=== PATIENT | female | born 1985 | race Caucasian/White ===

== ENCOUNTER 2016-09-27 12:54 | Emergency (ER) | payer SELFPAY ==
[2016-09-27 14:52] LABS: Urine Bilirubin Negative (Negative); Urine Glucose Negative (Negative); Urine Nitrite Negative (Negative)
[2016-09-27] MEDS ORDERED: NS 0.9% 1000 ML* 1,000 ML IV ONE (15:01)
[2016-09-27 15:02] LABS: UR Preg Internal Control QC Line Present
[2016-09-27 15:19] LABS: Hematocrit 41 % (35-47); Hemoglobin 13.8 g/dl (12.0-16.0); Mean Corpuscular HGB Conc 34 g/dl (31-36); Mean Corpuscular Hemoglobin 29 pg (27-31); Mean Corpuscular Volume 85 fL (80-97); Mean Platelet Volume 7 um3 (7.4-10.4); Red Blood Count 4.83 10^6/ul (4.0-5.4); Red Cell Distribution Width 14 % (10.5-15); White Blood Count 7.4 10^3/ul (3.5-10.8)
[2016-09-27 15:33] LABS: Albumin 4.5 g/dL (3.2-5.2); BUN/Creatinine Ratio 10.4 (8-20); C Reactive Protein 6.7 mg/L (< 5.00); Calcium 9.9 mg/dL (8.6-10.3); EGFR Non-African American 88.6 (>60); Globulin 2.9 g/dL (2-4); Potassium 3.8 mmol/L (3.5-5.0); Total Bilirubin 0.5 mg/dL (0.2-1.0); Total Protein 7.4 g/dL (6.4-8.9)
[2016-09-27] MEDS ORDERED: Iohexol 300* (CONTRAST) 10 ML SDV IV ONE (17:23)
--- NOTE | 2016-09-27 18:07 | RAD ---
INDICATION: Left lower quadrant abdominal pain. COMPARISON: There are no prior studies available for comparison. TECHNIQUE: A CT scan of the abdomen and pelvis was performed with intravenous and oral contrast following intravenous injection of 107 ml of Omnipaque 300 nonionic contrast. Contiguous axial sections were obtained from the lung bases through the symphysis pubis. Images were reconstructed in the coronal and sagittal planes. FINDINGS: The lung bases are clear. No pleural effusion is present. The liver and spleen are within normal limits in size without significant focal abnormality. The liver is decreased in attenuation consistent with fatty infiltration. No calcified gallstones are seen. The pancreas appears to be within normal limits in size. The kidneys and adrenal glands are normal in size. No hydronephrosis is seen. No significant focal renal abnormality is seen. The aorta is normal in caliber and demonstrates homogeneous contrast opacification. No significant enlarged retroperitoneal lymph nodes are seen. The stomach, small and large bowel appear nondistended. The appendix is within normal limits. There is mild sigmoid diverticulosis. There is no evidence for diverticulitis or colitis. The patient is status post hysterectomy. No free intraperitoneal air or fluid is seen. No significant focal osseous abnormality is seen. IMPRESSION: NO EVIDENCE FOR ACUTE FINDING OR CAUSE FOR THE PATIENT'S ABDOMINAL PAIN IS SEEN.
[2016-09-27 18:41] VITALS: BP 127/69
--- NOTE | 2016-09-29 23:20 | ED ---
Carmen Washington Rebecca, scribed for Steven Caro MD on 09/27/16 at 1403 . Abdominal Pain/Female - HPI Summary HPI Summary: Pt is a 31 y/o F who presents to ED c/o LLQ pain. Sx began suddenly at 1600 last night and have been constant since onset. Pain is discrete to the LLQ without radiation, characterized as sharp and ranked severe, 7/10. Sx aggravated by laying down and driving over bumps, alleviated by sitting with her knees up. Additionally c/o fever, chills, dipahoresis, blood in stool. Denies hematuria, dysuria. FHx Crohn's Disease. Reports "digestion and bowel issues" for the last few months for which she has been working with her PCP and has a GI visit on the of this month with [facility] in [place], [place]. - History of Current Complaint Chief Complaint: EDAbdPain Stated Complaint: LOWER LEFT ABD PAIN Hx Obtained From: Patient Onset/Duration: Sudden Onset, Lasting Days - 1 day, Still Present Timing: Constant Severity Initially: Moderate Severity Currently: Severe Pain Intensity: 7 Pain Scale Used: 0-10 Numeric Location: Discrete At: LLQ Radiates: No Character: Sharp Aggravating Factor(s): Other: - Laying flat, driving over bumps Alleviating Factor(s): Position - Sitting with her knees up Associated Signs and Symptoms: Positive: Diaphoresis, Fever, Blood in Stool, Other: - Chills. Negative: Urinary Symptoms Allergies/Adverse Reactions: Allergies Allergy/AdvReac Type Severity Reaction Status Date / Time Amoxicillin Allergy Anaphylatic Verified 09/27/16 13:08 Shock Morphine and Related Allergy Hives Verified 09/27/16 13:08 Penicillins Allergy Anaphylatic Verified 09/27/16 13:08 Shock PMH/Surg Hx/FS Hx/Imm Hx History: Reports: Other Problems/Disorders - Hx Nonalcoholic Fatty Liver Disease Denies: Hx Kidney Stones - Surgical History Surgery Procedure, Year, and Place: C-SECTOIN (2011). FULL HYSTERECTOMY (2012) Infectious Disease History: No Infectious Disease History: Denies: Traveled Outside the US in Last 30 Days - Family History Known Family History: Positive: Other - FHx Crohn's (grandmother and 2 aunts) - Social History Occupation: Employed Full-time Alcohol Use: None Smoking Status (MU): Former Smoker - Quit 2 days ago Review of Systems Positive: Fever, Chills, Skin Diaphoresis Negative: Erythema Negative: Sore Throat Negative: Chest Pain Negative: Shortness Of Breath, Cough Positive: Abdominal Pain - LLQ pain. Negative: Vomiting, Nausea Positive: other - blood in stool. Negative: dysuria, hematuria Negative: Myalgia, Edema Negative: Rash Neurological: Other - Negative dizziness All Other Systems Reviewed And Are Negative: Yes Physical Exam - Summary Physical Exam Summary: Constitutional: Well-developed, Well-nourished, Alert. (-) Distressed Skin: Warm, Dry HENT: Normocephalic; Atraumatic Eyes: Conjunctiva normal Neck: Musculoskeletal ROM normal neck. (-) JVD, (-) Stridor, (-) Tracheal deviation Cardio: Rhythm regular, rate normal, Heart sounds normal; Intact distal pulses; The pedal pulses are 2+ and symmetric. Radial pulses are 2+ and symmetric. (-) Murmur Pulmonary/Chest wall: Effort normal. (-) Respiratory distress, (-) Wheezes, (-) Rales Abd: Soft,(-) Distension, (-) Rebound, Guarding, LLQ tenderness Musculoskeletal: (-) Edema Lymph: (-) Cervical adenopathy Neuro: Alert, Oriented x3 Psych: Mood and affect Normal Triage Information Reviewed: Yes Vital Signs On Initial Exam: Initial Vitals Temp Pulse Resp BP Pulse Ox 97.4 F 75 17 119/75 100 09/27/16 13:06 09/27/16 13:06 09/27/16 13:06 09/27/16 13:06 09/27/16 13:06 Vital Signs Reviewed: Yes Diagnostics - Vital Signs Vital Signs Temp Pulse Resp BP Pulse Ox 09/27/16 13:11 97.4 F 75 17 119/75 100 09/27/16 13:06 97.4 F 75 17 119/75 100 - Laboratory Result Diagrams: 09/27/16 15:10 09/27/16 15:10 Lab Statement: Any lab studies that have been ordered have been reviewed, and results considered in the medical decision making process. - CT CT Abd/Pel CT Interpretation: No Acute Changes - NO EVIDENCE FOR ACUTE FINDING OR CAUSE FOR THE PATIENT'S ABDOMINAL PAIN IS SEEN. CT Interpretation Completed By: Radiologist Re-Evaluation - Re-Evaluation First Eval Re-Evaluation Time: 18:28 Change: Improved Comment: Reexamined her abdomen and she is mildly tender in the LLQ. She reported that she has had similar pain before. Was advised to move her appointment with [facility] up and to make an appointment with her PCP for this week. Abdominal Pain Fem Course/Dx - Course Course Of Treatment: Pt is a 31 y/o F with a CC of sharp, severe LLQ pain since 1600 last night. Additoinally c/o fever, chills, diaphoresis and blood in stool. Denies hematuria, dysuria. CT Abd/Pel reveals no acute findings. She has had a hysterectomy including ovaries, so no concern for ovarian torsion. She will be D/C to home with a Dx of LLQ abdominal pain and a follow up with her PCP , as well as moving up her GI appointment. - Diagnoses Differential Diagnosis: Positive: Diverticulitis, Irritable Bowel Syndrome, Other - Ulcerative colitis, Crohn's Disease, Microperforation, Colitis Provider Diagnoses: LLQ abdominal pain Discharge - Discharge Plan Condition: Stable Disposition: HOME Patient Education Materials: Abdominal Pain (ED) Referrals: [facility] [place] [place] [facility] [Outside] - 3 Days (Schedule an appointment for this week. ) Additional Instructions: Contact [facility] to move up your appointment. RETURN TO THE EMERGENCY DEPARTMENT FOR CHANGING OR WORSENING SYMPTOMS The documentation as recorded by the Carmen cade Rebecca accurately reflects the service I personally performed and the decisions made by me, Steven Caro MD.
== END 2016-09-27 18:49 | disposition home or self-care (01) ==
LOC: ED 12:54
DX: R10.32 Left lower quadrant pain (principal); R50.9 Fever, unspecified; K92.1 Melena
CPT/HCPCS: 36415; 74177; 80053; 81003; 81025; 83605; 83690; 85025; 86140; 99283; Q9967

== ENCOUNTER 2018-02-18 18:01 | Emergency (ER) | payer BC ==
[2018-02-18] MEDS ORDERED: LORazepam INJ* 2 MG/ML 1 ML VIAL IV PUSH ONE (19:24)
[2018-02-18] MEDS ORDERED: NS 0.9% 1000 ML* 1,000 ML IV ONE (19:24)
[2018-02-18] MEDS ORDERED: Ketorolac INJ* 30 MG/ML 1 ML VIAL IV PUSH ONE (19:24)
[2018-02-18 19:30] LABS: ABS Basophils 0.1 10^3/ul (0-0.2); ABS Eosinophils 0.3 10^3/ul (0-0.6); ABS Lymphocytes 3.9 10^3/ul (1.0-4.8); ABS Neutrophils 5.6 10^3/ul (1.5-7.7); ABS Nucleated RBC 0 10^3/ul; Eosinophil % 2.8 % (0-6); Hematocrit 42 % (35-47); Hemoglobin 14.1 g/dl (12.0-16.0); Lymphocyte % 35.8 % (25-47); Mean Corpuscular HGB Conc 34 g/dl (31-36); Mean Corpuscular Hemoglobin 29 pg (27-31); Mean Corpuscular Volume 86 fL (80-97); Mean Platelet Volume 6.7 um3 (7.4-10.4); Nucleated Red Blood Cells % 0; Platelet Count 325 10^3/ul (150-450); Red Blood Count 4.89 10^6/ul (4.00-5.40); Red Cell Distribution Width 14 % (10.5-15); White Blood Count 10.8 10^3/ul (3.5-10.8)
[2018-02-18 19:35] LABS: INR 0.96 (0.77-1.02)
[2018-02-18 19:40] LABS: EGFR Non-African American 86.7 (>60)
--- NOTE | 2018-02-18 19:42 | ED ---
Back Pain - HPI Summary HPI Summary: A 32 year old F presents to ED with severe R lower back onset 1100 today and worsening. At onset of back sergo, she heard a "pop." The pain is radiating to her hip. Associated sx: RLQ pain, dyspnea secondary to back pain, severe nausea. Denies urinary sx, LE pain/numbness/weakness. Aggravating factors: all movement. Complete hysterectomy in 2014. - History of Current Complaint Chief Complaint: EDAbdPain Stated Complaint: PAIN RT LOWER BACK AND HIP Time Seen by Provider: 02/18/18 19:18 Hx Obtained From: Patient Onset/Duration: Lasting Hours, Still Present Onset/Duration: Started Hours Ago, Still Present Timing: Constant Severity Currently: Severe Pain Intensity: 9 Pain Scale Used: 0-10 Numeric Aggravating Symptom(s): Movement Associated Signs And Symptoms: Positive: Abdominal Pain - RLQ, Other - pos: hip pain, dyspnea, nausea. neg: LE pain/numbness/weakness.. Negative: Bladder Incontinence, Bowel Incontinence - Allergies/Home Medications Allergies/Adverse Reactions: Allergies Allergy/AdvReac Type Severity Reaction Status Date / Time MS Amoxicillin [Amoxicillin] Allergy Anaphylatic Verified 09/27/16 13:08 Shock MS Morphine and Related Allergy Hives Verified 09/27/16 13:08 [Morphine and Related] MS Penicillins [Penicillins] Allergy Anaphylatic Verified 09/27/16 13:08 Shock PMH/Surg Hx/FS Hx/Imm Hx Previously Healthy: No Endocrine/Hematology History: Denies: Hx Diabetes Cardiovascular History: Denies: Hx Hypertension History: Reports: Other Problems/Disorders - Hx Nonalcoholic Fatty Liver Disease Denies: Hx Kidney Stones, Hx Renal Disease - Surgical History Surgery Procedure, Year, and Place: C-SECTOIN (2011). FULL HYSTERECTOMY (2012) Infectious Disease History: No Infectious Disease History: Denies: Traveled Outside the US in Last 30 Days - Family History Known Family History: Positive: Other - FHx Crohn's (grandmother and 2 aunts) - Social History Occupation: Employed Full-time Lives: With Family Alcohol Use: None Substance Use Type: Reports: None Smoking Status (MU): Former Smoker - Quit 2 days ago Review of Systems Negative: Fever Positive: Other - pos: dyspnea secondary to back pain Positive: Abdominal Pain - RLQ, Nausea Positive: Myalgia - R lower back pain, hip pain, Edema - neg: LE edema Neurological: Other - neg: LE weakness/numbness All Other Systems Reviewed And Are Negative: Yes Physical Exam - Summary Physical Exam Summary: Appearance: Well appearing. Skin: warm, dry, reflects adequate perfusion Head/face: normal Eyes: EOMI, LFORY ENT: mucous membranes moist Neck: supple, non-tender Respiratory: CTA, breath sounds present Cardiovascular: RRR, pulses symmetrical Abdomen: Pt jumps and cries with any pressure to R abd. Bowel Sounds: present Musculoskeletal: Pt jumps and cries to any light touch to R-lower back and sacroilliac. Neuro: normal, sensory motor intact, A&Ox3 Mood/affect: tearful, keeps eyes closed during entirety of exam. Triage Information Reviewed: Yes Vital Signs On Initial Exam: Initial Vitals Temp Pulse Resp BP Pulse Ox 98.0 F 88 16 107/72 96 02/18/18 18:24 02/18/18 18:24 02/18/18 18:24 02/18/18 18:24 02/18/18 18:24 Vital Signs Reviewed: Yes Diagnostics - Vital Signs Vital Signs Temp Pulse Resp BP Pulse Ox 02/18/18 18:24 98.0 F 88 16 107/72 96 - Laboratory Lab Results: Lab Results 02/18/18 Range/Units 19:13 WBC 10.8 (3.5-10.8) 10^3/ul RBC 4.89 (4.00-5.40) 10^6/ul Hgb 14.1 (12.0-16.0) g/dl Hct 42 (35-47) % MCV 86 (80-97) fL MCH 29 (27-31) pg MCHC 34 (31-36) g/dl RDW 14 (10.5-15) % Plt Count 325 (150-450) 10^3/ul MPV 6.7 L (7.4-10.4) um3 Neut % (Auto) 51.8 (38-83) % Lymph % (Auto) 35.8 (25-47) % Surry % (Auto) 8.8 H (0-7) % Eos % (Auto) 2.8 (0-6) % Baso % (Auto) 0.8 (0-2) % Absolute Neuts (auto) 5.6 (1.5-7.7) 10^3/ul Absolute Lymphs (auto) 3.9 (1.0-4.8) 10^3/ul Absolute Monos (auto) 1.0 H (0-0.8) 10^3/ul Absolute Eos (auto) 0.3 (0-0.6) 10^3/ul Absolute Basos (auto) 0.1 (0-0.2) 10^3/ul Absolute Nucleated RBC 0 10^3/ul Nucleated RBC % 0 Result Diagrams: 02/18/18 19:13 02/18/18 19:13 Lab Statement: Any lab studies that have been ordered have been reviewed, and results considered in the medical decision making process. - CT ABD/PEL CT CT Interpretation Completed By: Radiologist Summary of CT Findings: IMPRESSION: 1. No acute findings. No appendicitis. No radiopaque renal or ureteral calculi. 2. Hepatic steatosis. 3. Status post hysterectomy. ED provider has reviewed this report. Re-Evaluation - Re-Evaluation 1 Re-Evaluation Time: 21:16 Change: Improved Comment: Pt is feeling better. Discussing lab and UA results thus far. Still pending CT read. Back Pain Course/Dx - Course Course Of Treatment: Pt has been seen previously for abd pain and discharged with negative labs and work-up. Surgical hx: and complete hysterectomy in 2014. No previous hx kidney stones. Patient was crying in discomfort with pain throughout the right lower back and right lower abdomen. She had a complete hysterectomy in the past. Urine was negative as were laboratories. His noncontrasted CT scan is performed and found to be negative for acute inflammation. Patient was treated symptomatically and improved significantly. Her tenderness now is isolated just to the right low back. We' ll treat her symptomatically, refer to adult live in caregiver and have her follow up with primary care physician. No disc symptoms or radicular symptoms down either leg. - Diagnoses Differential Diagnosis/HQI/PQRI: Positive: Herniated Disc, Renal Colic, Strain, Sprain Provider Diagnoses: Lumbar strain Discharge - Sign-Out/Discharge Documenting (check all that apply): Patient Departure - DC - Discharge Plan Condition: Improved Disposition: HOME Prescriptions: Cyclobenzaprine TAB* [Flexeril 10 MG TAB*] 10 mg PO TID PRN #12 tab PRN Reason: muscle pain Naproxen [Naproxen 500 mg tab] 500 mg PO BID PRN #12 tablet.dr BAJWA Reason: Pain Patient Education Materials: Low Back Strain (ED) Referrals: Lopez Gaxiola PA [Primary Care Provider] - Additional Instructions: Stay well-hydrated. Call and make an appointment to follow up with your doctor in the morning. Also adult live in caregiver may help. Call to make an appointment. Range of motion exercises, stretching and massage may help. Return with difficulty with bowel or bladder, numbness/weakness, worse, new symptoms or other concerns. - Billing Disposition and Condition Condition: IMPROVED Disposition: Home - Attestation Statements Document Initiated by Diandra: Yes Documenting Scribe: Edmundo Mejia Provider For Whom Diandra is Documenting (Include Credential): Dr. Minor Weathers MD Scribe Attestation: Edmundo Washington, scribed for Dr. Minor Weathers MD on 02/18/18 at 2153. Scribe Documentation Reviewed: Yes Provider Attestation: The documentation as recorded by the Edmundo cade accurately reflects the service I personally performed and the decisions made by me, Dr. Minor Weathers MD
[2018-02-18 20:18] LABS: Urine Appearance Clear; Urine Blood Negative (Negative); Urine Color Straw; Urine Ketones Negative (Negative); Urine Protein Negative (Negative); Urine Urobilinogen Negative (Negative)
--- NOTE | 2018-02-18 21:24 | RAD ---
EXAM: CT Abdomen and Pelvis Without Intravenous Contrast EXAM DATE/TIME: 02/18/2018 8:20 PM CLINICAL HISTORY: 32 years old, female; Pain; Abdominal pain; Prior surgery; Surgery date: 6+ months; Surgery type: Hysterectomy, emergency csection; Additional info: R flank/rlq pain TECHNIQUE: Axial computed tomography images of the abdomen and pelvis without intravenous contrast. All CT scans at this facility use at least one of these dose optimization techniques: automated exposure control; mA and/or kV adjustment per patient size (includes targeted exams where dose is matched to clinical indication); or iterative reconstruction. Coronal and sagittal reformatted images were created and reviewed. COMPARISON: A/P W CT ABD/PEL W 09/27/2016 5:39 PM FINDINGS: Lower thorax: No acute findings. ABDOMEN: Liver: There is a diffuse decrease in hepatic parenchymal density, consistent with fatty infiltration. Gallbladder and bile ducts: Unremarkable. No calcified gallstones. No ductal dilation. Pancreas: Unremarkable. No ductal dilation. Spleen: Unremarkable. No splenomegaly. Adrenals: Unremarkable. No mass. Kidneys and ureters: Unremarkable. No hydronephrosis. No calcified stones. Stomach and bowel: No bowel obstruction. No mucosal thickening. Appendix: Normal. No evidence of appendicitis. PELVIS: Bladder: Unremarkable as visualized. Contains no calcified stones. Reproductive: The uterus has been resected. ABDOMEN and PELVIS: Intraperitoneal space: No free air or significant free fluid. Vertical midline scar in lower abdomen. Bones/joints: No acute fracture or aggressive osseous lesion. Soft tissues: There is a small fat-containing umbilical hernia. . Vasculature: No abdominal aortic aneurysm. Lymph nodes: No enlarged lymph nodes. IMPRESSION: 1. No acute findings. No appendicitis. No radiopaque renal or ureteral calculi. 2. Hepatic steatosis. 3. Status post hysterectomy. To contact [facility] with a general question: Operations Center - [phone] For direct physician to physician contact: Physician Hotline - [phone] [facility] ([facility] Facility ID #[id number])
[2018-02-18] MEDS ORDERED: Cyclobenzaprine TAB* 10 MG PO ONE (21:29)
[2018-02-18 21:43] VITALS: BP 114/75
== END 2018-02-18 21:44 | disposition home or self-care (01) ==
LOC: ED 18:01
DX: S39.012A Strain of muscle, fascia and tendon of lower back, initial encounter (principal); X58.XXXA Exposure to other specified factors, initial encounter; Y92.9 Unspecified place or not applicable; R10.31 Right lower quadrant pain; R06.00 Dyspnea, unspecified; R11.0 Nausea; Z90.710 Acquired absence of both cervix and uterus; Z88.5 Allergy status to narcotic agent; Z88.0 Allergy status to penicillin; Z87.891 Personal history of nicotine dependence
CPT/HCPCS: 36415; 74176; 80053; 81003; 83605; 83690; 85025; 85610; 86140; 96374; 96375; 99283; A9270-GY; J1885; J2060

== ENCOUNTER 2019-03-28 02:41 | Inpatient (IN) | payer BC ==
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
[2019-03-28 03:37] LABS: ABS Basophils 0.1 10^3/ul (0-0.2); ABS Eosinophils 0.2 10^3/ul (0-0.6); ABS Lymphocytes 4.9 10^3/ul (1.0-4.8); ABS Monocytes 0.8 10^3/ul (0-0.8); ABS Neutrophils 6.3 10^3/ul (1.5-7.7); Eosinophil % 1.8 %; Hematocrit 40 % (35-47); Hemoglobin 13.3 g/dL (12.0-16.0); Lymphocyte % 39.8 %; Mean Corpuscular HGB Conc 33 g/dL (31-36); Mean Corpuscular Hemoglobin 29 pg (27-31); Mean Corpuscular Volume 86 fL (80-97); Mean Platelet Volume 6.6 fL (7.4-10.4); Nucleated Red Blood Cells % 0.3; Platelet Count 323 10^3/uL (150-450); Red Blood Count 4.63 10^6 /uL (3.70-4.87); Red Cell Distribution Width 14 % (10-15); White Blood Count 12.3 10^3/uL (3.5-10.8)
[2019-03-28 03:38] LABS: Urine Appearance Clear; Urine Bilirubin Negative (Negative); Urine Blood Negative (Negative); Urine Color Straw; Urine Glucose Negative (Negative); Urine Ketones Negative (Negative); Urine Nitrite Negative (Negative); Urine Protein Negative (Negative); Urine Specific Gravity 1.004 (1.010-1.030); Urine Urobilinogen Negative (Negative)
[2019-03-28 03:51] LABS: ALT 22 U/L (7-52); AST 20 U/L (13-39); Albumin 4.3 g/dL (3.2-5.2); Albumin/Globulin Ratio 1.5 (1-3); Alkaline Phosphatase 103 U/L (34-104); Anion Gap 7 mmol/L (2-11); BUN/Creatinine Ratio 10.5 (8-20); Blood Urea Nitrogen 9 mg/dL (6-24); CO2 Carbon Dioxide 26 mmol/L (22-32); Calcium 9.6 mg/dL (8.6-10.3); Chloride 107 mmol/L (101-111); EGFR African American 93.1 (>60); Globulin 2.9 g/dL (2-4); Glucose 107 mg/dL (70-100); Potassium 3.4 mmol/L (3.5-5.0); Sodium 140 mmol/L (135-145); Total Protein 7.2 g/dL (6.4-8.9)
[2019-03-28 03:57] LABS: HCG Pregnancy 3.12 mIU/mL
[2019-03-28 04:05] LABS: Urine Benzodiazepine Screen None Detected (None Detect)
[2019-03-28 04:06] LABS: Urine Opiates Screen None Detected (None Detect)
[2019-03-28 04:13] LABS: Acetaminophen < 15 mcg/mL; Alcohol < 10 mg/dL (<10); Salicylate < 2.50 mg/dL (<30)
[2019-03-28 04:42] LABS: TSH (Thyroid Stimulating Horm) 1.54 mcIU/mL (0.34-5.60)
[2019-03-28] MEDS ORDERED: Al Hydrox/Mg Hydrox/Simet LIQ* 30 ML UDC PO PRN (07:58)
[2019-03-28] MEDS ORDERED: Acetaminophen TAB* 325 MG PO PRN (07:58)
[2019-03-28] MEDS ORDERED: Nicotine* 2MG (FRUIT FLAVOR) GUM PO PRN (07:58)
[2019-03-28] MEDS ORDERED: Sertraline* 100 MG TAB PO SCH ×2 (09:45→21:00)
[2019-03-28] MEDS: Vitamin THERAPEUTIC TAB PO SCH (09:50)
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
[2019-03-28] MEDS: hydrOXYzine HCL TAB* 25 MG PO PRN (20:47)
[2019-03-28] MEDS: Nicotine Patch Removal NOTE FOLLOW UP SCH (23:37)
[2019-03-29 07:57] LABS: HDL Cholesterol 38.5 mg/dL
[2019-03-29] MEDS: Nicotine PATCH 7 MG/24 HR* PATCH TRANSDERM SCH (08:27)
[2019-03-29] MEDS: Vitamin THERAPEUTIC TAB PO SCH (08:27)
[2019-03-29] MEDS ORDERED: Influenza VAC *QUAD* 2019-20* 0.5 ML SYRINGE IM ONE (09:00)
--- NOTE | 2019-03-29 15:30 | PN ---
Subjective - Subjective Date of Service: 03/29/19 Service Type: 77165 Hosp care 15 min low complexity Subjective: Patient reports much improved mood and sleep. She states that meeting with Dr Victor to discuss MMPI results was helpful and validating. She states this helped to be able to be honest about dissociating and refers to this as "slipping into Little." Patient reports anxiety in regards to continuing therapy but is motivated to do so. Objective - General Observations Appearance: Well Groomed Stature: WNL Posture: WNL Eye Contact: Average Behavior/Activity: WNL - Interaction Observations Attitude Towards Examiner: Cooperative Stated Mood: Dysphoric, Euthymic Affect: Full Speech Pattern/Tone: Clear, Appropriate, Normal Volume Thought Process: Coherent, Circumstantial Perception: WNL Thought Content: Depressive, Self-Deprecatory Thought Process: Lethality: Suicidal Planning - intrusive thoughts of suicide Hallucination Type: Denies Delusion Type: Denies - Cognitive Function Orientation: A&O x 4 Level of Consciousness: Alert Cognition: WNL Estimated Intelligence: Normal Insight: WNL Judgment Within Normal Limits: No Ability to Make Reasonable Decisions: Moderately Impaired - Medication Compliance Cooperative with Inpatient Medication Regimen: Yes - Group Participation Participates in Group Activities: Yes Assessment - Assessment Merits Inpatient Hospitalization: For Immediate Safety, For Stabilization Inpatient DSM-V Dx: F43.12 Clinical Impression: 33yo female by , identifies as nonbinary, prefers to be called Morigan and prefers they/them pronouns, who presented to the ED with intrusive thoughts of suicide as well as panic attacks and insomnia. Patient has a trauma history and is experiencing dissociative episodes. Patient merits hospitalization for immediate safety and stabilization. Plan - Plan Treatment Plan: Name: CEDRICK TOWNSEND Birthdate: 1985 [id number] Continue acute intensive psychiatric treatment. May decrease to q30min and allow staff pass and computer use per RN discretion. Patient's child may visit per RN discretion. Continue current medications. Discharge planning to include family and outpatient providers. Continued Medication Management: Start Medication Medications: Current Medications Acetaminophen (Tylenol Tab*) 650 mg PO Q4H PRN PRN Reason: PAIN or TEMP > 101 F Al Hydrox/Mg Hydrox/Simethicone (Maalox Plus*) 30 ml PO Q4H PRN PRN Reason: INDIGESTION Hydroxyzine HCl (Atarax Tab*) 25 mg PO Q6H PRN PRN Reason: ANXIETY Last Admin: 03/28/19 20:47 Dose: 25 mg Melatonin (Melatonin) 3 mg PO BEDTIME PRN PRN Reason: INSOMNIA Multivitamins (Theragran Tab*) 1 tab PO DAILY [facility] Last Admin: 03/29/19 08:27 Dose: 1 tab Nicotine (Nicotine Patch 7 Mg/24 Hr*) 1 patch TRANSDERM DAILY [facility] Last Admin: 03/29/19 08:27 Dose: 1 patch Nicotine Polacrilex (Nicotine Gum*) 2 mg PO Q2H PRN PRN Reason: CRAVINGS Pharmacy Profile Note (Nicotine Patch Removal Note*) 1 note FOLLOW UP 2100 [facility] Last Admin: 03/28/19 23:37 Dose: Not Given Sertraline HCl (Zoloft*) 200 mg PO BEDTIME [facility] - Discharge Plan Discharge Plan: Inpatient Hospitalization Outpatient Program: [facility]
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
[2019-03-29] MEDS: Melatonin 3 MG TAB PO PRN (20:45)
[2019-03-29] MEDS: hydrOXYzine HCL TAB* 25 MG PO PRN (20:45)
[2019-03-29] MEDS: Sertraline* 100 MG TAB PO SCH (20:46)
[2019-03-29] MEDS: Nicotine Patch Removal NOTE FOLLOW UP SCH (20:46)
[2019-03-30] MEDS: Nicotine PATCH 7 MG/24 HR* PATCH TRANSDERM SCH (09:00)
[2019-03-30] MEDS: Vitamin THERAPEUTIC TAB PO SCH (09:00)
[2019-03-30] MEDS: Sertraline* 100 MG TAB PO SCH (19:55)
[2019-03-30] MEDS: Nicotine Patch Removal NOTE FOLLOW UP SCH (19:56)
[2019-03-30] MEDS: hydrOXYzine HCL TAB* 25 MG PO PRN (19:57)
[2019-03-30] MEDS: Melatonin 3 MG TAB PO PRN (19:57)
[2019-03-31] MEDS: Vitamin THERAPEUTIC TAB PO SCH (08:42)
[2019-03-31] MEDS: Nicotine PATCH 7 MG/24 HR* PATCH TRANSDERM SCH (08:42)
--- NOTE | 2019-03-31 18:02 | PN ---
Subjective - Subjective Date of Service: 03/31/19 Objective - General Observations Appearance: Well Groomed Appears Stated Age: Yes Stature: Overweight Posture: WNL Eye Contact: Average Behavior/Activity: WNL - Interaction Observations Attitude Towards Examiner: Cooperative Stated Mood: Euthymic Affect: Full Speech Pattern/Tone: Clear, Normal Volume Thought Process: Coherent, Goal Directed Perception: WNL Hallucination Type: None Delusion Type: None - Cognitive Function Orientation: A&O x 4 Level of Consciousness: Alert Cognition: WNL Judgment Within Normal Limits: Yes - Medication Compliance Cooperative with Inpatient Medication Regimen: Yes - Group Participation Participates in Group Activities: Yes Assessment - Assessment Merits Inpatient Hospitalization: Consolidate Improvements, For Discharge Planning Inpatient DSM-V Dx: F43.12 Plan - Treatment Plan Level of Observation: 15 Minute Checks, Full Code Status Obtain Collateral Information: Yes Medications: Current Medications Acetaminophen (Tylenol Tab*) 650 mg PO Q4H PRN PRN Reason: PAIN or TEMP > 101 F Last Admin: 03/31/19 11:13 Dose: 650 mg Al Hydrox/Mg Hydrox/Simethicone (Maalox Plus*) 30 ml PO Q4H PRN PRN Reason: INDIGESTION Hydroxyzine HCl (Atarax Tab*) 25 mg PO Q6H PRN PRN Reason: ANXIETY Last Admin: 03/30/19 19:57 Dose: 25 mg Melatonin (Melatonin) 3 mg PO BEDTIME PRN PRN Reason: INSOMNIA Last Admin: 03/30/19 19:57 Dose: 3 mg Multivitamins (Theragran Tab*) 1 tab PO DAILY [facility] Last Admin: 03/31/19 08:42 Dose: 1 tab Nicotine (Nicotine Patch 7 Mg/24 Hr*) 1 patch TRANSDERM DAILY [facility] Last Admin: 03/31/19 08:42 Dose: 1 patch Nicotine Polacrilex (Nicotine Gum*) 2 mg PO Q2H PRN PRN Reason: CRAVINGS Pharmacy Profile Note (Nicotine Patch Removal Note*) 1 note FOLLOW UP 2100 [facility] Last Admin: 03/30/19 19:56 Dose: 1 note Sertraline HCl (Zoloft*) 200 mg PO BEDTIME [facility] Last Admin: 03/30/19 19:55 Dose: 200 mg
--- NOTE | 2019-03-31 18:09 | PN ---
Subjective - Subjective Date of Service: 03/31/19 Subjective: Patient introduces self as Saurabh (the protector) because "Phylicia," is afraid. Patient reports that Phylicia is responding well to the increase in Sertraline and sleep and mood have improved and Phylicia no longer has thoughts of suicide. Patient informs me about other personalities: Tempest and Margo, etc. Objective - General Observations Appearance: Neat Appears Stated Age: Yes Stature: Overweight Posture: WNL Eye Contact: Average Behavior/Activity: WNL - Interaction Observations Attitude Towards Examiner: Defensive Stated Mood: Euthymic Affect: Restricted Speech Pattern/Tone: Clear, Normal Volume Thought Process: Coherent, Goal Directed Perception: WNL Thought Content: WNL Hallucination Type: None Delusion Type: None - Cognitive Function Orientation: A&O x 4 Level of Consciousness: Awake Estimated Intelligence: Normal Judgment Within Normal Limits: Yes - Medication Compliance Cooperative with Inpatient Medication Regimen: Yes - Group Participation Participates in Group Activities: Yes Assessment - Assessment Merits Inpatient Hospitalization: Consolidate Improvements, For Discharge Planning Inpatient DSM-V Dx: F43.12 Clinical Impression: 33yo female by , identifies as nonbinary, prefers to be called Phylicia and prefers they/them pronouns, who presented to the ED with intrusive thoughts of suicide as well as panic attacks and insomnia. Patient has a trauma history and is experiencing dissociative episodes. Patient merits hospitalization for immediate safety and stabilization. Met with this patient in self-reported dissociated state. They report "Phylicia is stabilizing in this structured setting." Plan - Plan Treatment Plan: Name: CEDRICK TOWNSEND Birthdate: 1985 [id number] Continue acute intensive psychiatric treatment. May decrease to q30min and allow staff pass and computer use per RN discretion. Patient's child may visit per RN discretion. Continue current medications. Discharge planning to include family and outpatient providers. Medications: Current Medications Acetaminophen (Tylenol Tab*) 650 mg PO Q4H PRN PRN Reason: PAIN or TEMP > 101 F Last Admin: 03/31/19 11:13 Dose: 650 mg Al Hydrox/Mg Hydrox/Simethicone (Maalox Plus*) 30 ml PO Q4H PRN PRN Reason: INDIGESTION Hydroxyzine HCl (Atarax Tab*) 25 mg PO Q6H PRN PRN Reason: ANXIETY Last Admin: 12/07/19 19:57 Dose: 25 mg Melatonin (Melatonin) 3 mg PO BEDTIME PRN PRN Reason: INSOMNIA Last Admin: 03/30/19 19:57 Dose: 3 mg Multivitamins (Theragran Tab*) 1 tab PO DAILY [facility] Last Admin: 03/31/19 08:42 Dose: 1 tab Nicotine (Nicotine Patch 7 Mg/24 Hr*) 1 patch TRANSDERM DAILY [facility] Last Admin: 03/31/19 08:42 Dose: 1 patch Nicotine Polacrilex (Nicotine Gum*) 2 mg PO Q2H PRN PRN Reason: CRAVINGS Pharmacy Profile Note (Nicotine Patch Removal Note*) 1 note FOLLOW UP 2100 [facility] Last Admin: 03/30/19 19:56 Dose: 1 note Sertraline HCl (Zoloft*) 200 mg PO BEDTIME [facility] Last Admin: 03/30/19 19:55 Dose: 200 mg - Discharge Plan Discharge Plan: Outpatient Follow Up Outpatient Program: [facility]
[2019-03-31] MEDS: Nicotine Patch Removal NOTE FOLLOW UP SCH (20:18)
[2019-03-31] MEDS: Sertraline* 100 MG TAB PO SCH (20:18)
[2019-03-31] MEDS: hydrOXYzine HCL TAB* 25 MG PO PRN (20:20)
[2019-04-01 08:28] VITALS: BP 131/85
[2019-04-01] MEDS: Vitamin THERAPEUTIC TAB PO SCH (08:50)
[2019-04-01] MEDS: Nicotine PATCH 7 MG/24 HR* PATCH TRANSDERM SCH (08:50)
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
== END 2019-04-01 15:45 | disposition home or self-care (01) | DRG 755 ==
LOC: ED 02:41 → BSU 06:35
PROVIDERS: ADMIT Psychiatry & Neurology Psychiatry; ATTEND Psychiatry & Neurology Psychiatry
DX: F43.12 Post-traumatic stress disorder, chronic (principal); F33.2 Major depressive disorder, recurrent severe without psychotic features; R45.851 Suicidal ideations; F44.9 Dissociative and conversion disorder, unspecified; F17.210 Nicotine dependence, cigarettes, uncomplicated; E03.9 Hypothyroidism, unspecified; E28.2 Polycystic ovarian syndrome; Z81.8 Family history of other mental and behavioral disorders; Z81.4 Family history of other substance abuse and dependence; Z88.1 Allergy status to other antibiotic agents; Z88.5 Allergy status to narcotic agent; Z88.0 Allergy status to penicillin; Z79.899 Other long term (current) drug therapy
CPT/HCPCS: 36415; 80053; 80061; 80307; 80320; 80329; 81003; 83036; 84443; 84702; 85025; 90686; 96130; 99222; 99231; 99238; 99284; A9270-GY; G0480

== ENCOUNTER 2019-10-28 11:49 | Inpatient (IN) ==
[2019-10-28 12:38] LABS: Urine Appearance Cloudy; Urine Bilirubin 1+ (Negative); Urine Blood Negative (Negative); Urine Color Amber; Urine Glucose Negative (Negative); Urine Ketones Trace (Negative); Urine Nitrite Negative (Negative); Urine Protein 1+(30 mg/dL) (Negative); Urine Specific Gravity 1.038 (1.010-1.030); Urine Urobilinogen Negative (Negative)
[2019-10-28 12:41] LABS: Urine Bacteria Absent (Absent); Urine Red Blood Cell 2+(6-10/hpf) (Absent); Urine Squamous Epithelial Cell Present (Absent); Urine White Blood Cell Trace(0-5/hpf) (Absent)
[2019-10-28 12:58] LABS: Urine Benzodiazepine Screen None Detected (None Detect); Urine Opiates Screen None Detected (None Detect)
[2019-10-28] MEDS ORDERED: Al Hydrox/Mg Hydrox/Simet LIQ 30 ML UDC PO PRN (14:14)
[2019-10-28 14:23] LABS: ABS Basophils 0.1 10^3/ul (0-0.2); ABS Eosinophils 0.2 10^3/ul (0-0.6); ABS Lymphocytes 3.2 10^3/ul (1.0-4.8); ABS Monocytes 0.6 10^3/ul (0-0.8); Eosinophil % 1.7 %; Hematocrit 40 % (35-47); Hemoglobin 13.7 g/dL (12.0-16.0); Lymphocyte % 35.9 %; Mean Corpuscular HGB Conc 35 g/dL (31-36); Mean Corpuscular Hemoglobin 30 pg (27-31); Mean Corpuscular Volume 87 fL (80-97); Mean Platelet Volume 6.8 fL (7.4-10.4); Nucleated Red Blood Cells % 0.1; Platelet Count 316 10^3/uL (150-450); Red Blood Count 4.59 10^6 /uL (3.70-4.87); Red Cell Distribution Width 14 % (10-15); White Blood Count 8.9 10^3/uL (3.5-10.8)
[2019-10-28 14:40] LABS: ALT 22 U/L (7-52); AST 21 U/L (13-39); Albumin 4.5 g/dL (3.2-5.2); Albumin/Globulin Ratio 1.7 (1-3); Alkaline Phosphatase 86 U/L (34-104); Anion Gap 8 mmol/L (2-11); BUN/Creatinine Ratio 10.1 (8-20); Blood Urea Nitrogen 9 mg/dL (6-24); CO2 Carbon Dioxide 27 mmol/L (22-32); Calcium 9.8 mg/dL (8.6-10.3); Chloride 106 mmol/L (101-111); EGFR African American 88.9 (>60); EGFR Non-African American 73.5 (>60); Globulin 2.6 g/dL (2-4); Glucose 91 mg/dL (70-100); Potassium 3.6 mmol/L (3.5-5.0); Sodium 141 mmol/L (135-145); Total Protein 7.1 g/dL (6.4-8.9)
[2019-10-28 14:47] LABS: HCG Pregnancy 4.46 mIU/mL
[2019-10-28 14:58] LABS: Acetaminophen < 15 mcg/mL; Alcohol, S < 10 mg/dL (<10); Salicylate < 2.50 mg/dL (<30)
[2019-10-28 15:11] LABS: TSH (Thyroid Stimulating Horm) 1.09 mcIU/mL (0.34-5.60)
[2019-10-28] MEDS ORDERED: Albuterol HFA INHALER 8 gm MDI INH PRN (19:31)
[2019-10-28] MEDS ORDERED: Nicotine GUM 2MG FRUIT FLAVOR PO PRN (20:00)
[2019-10-29 07:29] LABS: HDL Cholesterol 32.7 mg/dL
[2019-10-29] MEDS: Vitamin THERAPEUTIC TAB PO SCH (07:30)
[2019-10-29] MEDS: Nicotine PATCH 14 MG/24 HR PATCH TRANSDERM SCH (07:30)
[2019-10-29] MEDS ORDERED: DULoxetine DR 30 mg CAP PO ONE (14:11)
[2019-10-29] MEDS: DULoxetine DR 30 mg CAP PO SCH (20:19)
[2019-10-30] MEDS: Nicotine PATCH 14 MG/24 HR PATCH TRANSDERM SCH (07:30)
[2019-10-30] MEDS: Vitamin THERAPEUTIC TAB PO SCH (07:31)
[2019-10-30] MEDS: DULoxetine DR 30 mg CAP PO SCH (20:22)
[2019-10-31] MEDS: Nicotine PATCH 14 MG/24 HR PATCH TRANSDERM SCH (08:47)
[2019-10-31] MEDS: Vitamin THERAPEUTIC TAB PO SCH (08:47)
[2019-10-31] MEDS: DULoxetine DR 30 mg CAP PO SCH (20:13)
[2019-11-01] MEDS: Vitamin THERAPEUTIC TAB PO SCH (08:34)
[2019-11-01] MEDS: Nicotine PATCH 14 MG/24 HR PATCH TRANSDERM SCH (08:34)
[2019-11-01] MEDS: DULoxetine DR 30 mg CAP PO SCH (20:18)
[2019-11-02] MEDS: Nicotine PATCH 14 MG/24 HR PATCH TRANSDERM SCH (08:30)
[2019-11-02] MEDS: Vitamin THERAPEUTIC TAB PO SCH (08:30)
[2019-11-02] MEDS: DULoxetine DR 30 mg CAP PO SCH (20:00)
[2019-11-03] MEDS: Nicotine PATCH 14 MG/24 HR PATCH TRANSDERM SCH (09:00)
[2019-11-03] MEDS: Vitamin THERAPEUTIC TAB PO SCH (09:01)
[2019-11-03] MEDS: DULoxetine DR 30 mg CAP PO SCH (20:09)
[2019-11-04] MEDS: Vitamin THERAPEUTIC TAB PO SCH (08:52)
[2019-11-04] MEDS: Nicotine PATCH 14 MG/24 HR PATCH TRANSDERM SCH (08:52)
[2019-11-04 09:14] VITALS: BP 111/78
== END 2019-11-04 11:30 | disposition home or self-care (01) | DRG 755 ==
LOC: ED 11:49 → BSU 14:14
PROVIDERS: ADMIT Psychiatry & Neurology Psychiatry; ATTEND Psychiatry & Neurology Psychiatry